=== PATIENT | male | born 1990 | race Caucasian/White ===

== ENCOUNTER 2017-08-03 18:38 | Emergency (ER) | payer SELFPAY ==
[2017-08-03] MEDS ORDERED: Benzocaine 20% Topical Spray UD MUCMEM ONE (18:54)
[2017-08-03] MEDS ORDERED: Lidocaine 2% Viscous Solution 15 ML Cup PO ONE (18:54)
--- NOTE | 2017-08-03 18:57 | EDM.PDOC ---
ED HPI GENERAL MEDICAL PROBLEM - General Chief Complaint: ENT Problem Stated Complaint: PT HAS INFECTION IN MOUTH Time Seen by Provider: 08/03/17 18:54 Source of Information: Reports: Patient History Limitations: Reports: No Limitations - History of Present Illness INITIAL COMMENTS - FREE TEXT/NARRATIVE: HISTORY AND PHYSICAL: []27-year-old male presenting with soreness to his mouth History of Present Illness: []This is an present for some time Review of Systems: As per history of present illness and below otherwise all systems reviewed and negative. Past medical history: As per history of present illness and as reviewed below otherwise noncontributory. Surgical history: As per history of present illness and as reviewed below otherwise noncontributory. Social history: No reported history of drug or alcohol abuse. Family history: As per history of present illness and as reviewed below otherwise noncontributory. Physical exam: Poor dentition is noted. Gums are swollen and erythematous. He is answering questions appropriately in full sentences without any shortness of breath HEENT: Atraumatic, normocehpalic, pupils reactive, negative for conjunctival pallor or scleral icterus, mucous membranes moist, throat clear, neck supple, nontender, trachea midline. Dental caries present and erythema to his gums Lungs: Clear to auscultation, breath sounds equal bilaterally, chest non tender. Heart: S1S2, regular, negative for clicks, rubs, or JVD. Extremities: Atraumatic, negative for cords or calf pain. Neurovascular unremarkable. Neuro: Awake, alert, oriented. Cranial nerves II through XII unremarkable. Cerebellum unremarkable. Motor and sensory unremarkable throughout. Exam nonfocal. Diagnostics: [] Therapeutics: [Dental balls] Impression: [Gingivitis] Plan: [Discharged to home Follow up with your dentist or dental hygienist] Definitive disposition and diagnosis as appropriate pending reevaluation and review of above. Onset: Gradual Duration: Day(s): - Related Data Allergies Allergy/AdvReac Type Severity Reaction Status Date / Time No Known Allergies Allergy Verified 08/03/17 18:51 Home Meds: Home Meds . [No Known Home Meds] 08/03/17 [History] ED ROS ENT - Review of Systems Review Of Systems: ROS reveals no pertinent complaints other than HPI. ED EXAM, ENT - Physical Exam Exam: See Below (see dictation) Departure - Departure Time of Disposition: 18:56 Disposition: Home, Self-Care 01 Condition: Good Clinical Impression: Gingivitis - Discharge Information Additional Instructions: The following information is given to patients seen in the emergency department who are being discharged to home. This information is to outline your options for follow-up care. We provide all patients seen in our emergency department with a follow-up referral. The need for follow-up, as well as the timing and circumstances, are variable depending upon the specifics of your emergency department visit. If you don't have a primary care physician on staff, we will provide you with a referral. We always advise you to contact your personal physician following an emergency department visit to inform them of the circumstance of the visit and for follow-up with them and/or the need for any referrals to a consulting specialist. The emergency department will also refer you to a specialist when appropriate. This referral assures that you have the opportunity for followup care with a specialist. All of these measure are taken in an effort to provide you with optimal care, which includes your followup. Under all circumstances we always encourage you to contact your private physician who remains a resource for coordinating your care. When calling for followup care, please make the office aware that this follow-up is from your recent emergency room visit. If for any reason you are refused follow-up, please contact the [facility] emergency department at and asked to speak to the emergency department charge nurse. Gingivitis Dental balls will help with the discomfort Follow-up with your dental hygienist her dentist
== END 2017-08-03 19:20 | disposition home or self-care (01) ==
LOC: MW.ED 18:38
DX: K05.10 Chronic gingivitis, plaque induced (principal)
CPT/HCPCS: 99283; A9270; 99281

== ENCOUNTER 2020-10-04 15:07 | Emergency (ER) | payer OTHER ==
[2020-10-04] MEDS ORDERED: Bacitracin Oint 1 GM U/D Packet TOP ONE (16:19)
[2020-10-04] MEDS ORDERED: Diphtheria,Pertussis(Acell),Tetanus Vaccine 0.5 ML Syringe IM ONE (16:31)
--- NOTE | 2020-10-04 16:40 | EDM.PDOC ---
ED HPI GENERAL MEDICAL PROBLEM - General Chief Complaint: Bite:Animal, Insect Stated Complaint: MEDICAL CLEARENCE Time Seen by Provider: 10/04/20 15:42 Source of Information: Reports: Patient, Family History Limitations: Reports: No Limitations - History of Present Illness INITIAL COMMENTS - FREE TEXT/NARRATIVE: Presents with law enforcement. This afternoon he was bitten in the hand by his girlfriend's dog. He lives with the dog. He states the dog got excited by some loud noise and in the course of containing the dog, he was bitten. He has no medical problems. Uncertain tetanus status. He will be going to the local [facility] who requested medical clearance. Patient states that he is uncertain of the dog's vaccination status. Right Hand Pain Score (Numeric/FACES): 8 - Related Data Allergies Allergy/AdvReac Type Severity Reaction Status Date / Time No Known Allergies Allergy Verified 10/04/20 15:16 Home Meds: Home Meds Amoxicillin/Potassium Clav [Augmentin 875-125 Tablet] 1 each PO BID #14 tablet 10/04/20 [Rx] Past Medical History - Past Health History Medical/Surgical History: Denies Medical/Surgical History Psychiatric History: Reports: Anxiety Social & Family History - Family History Family Medical History: No Pertinent Family History - Tobacco Use Tobacco Use Status *Q: Current Every Day Tobacco User Years of Tobacco use: 15 Packs/Tins Daily: 1 - Caffeine Use Caffeine Use: Reports: None - Recreational Drug Use Recreational Drug Use: Yes Recreational Drug Type: Reports: Marijuana/Hashish Recreational Drug Use Frequency: Daily ED ROS GENERAL - Review of Systems Review Of Systems: Comprehensive ROS is negative, except as noted in HPI. ED EXAM, ANIMAL BITE - Physical Exam Exam: See Below General Appearance: Alert, No Apparent Distress Ears: Normal External Exam Nose: Normal Inspection Throat/Mouth: Normal Inspection Head: Atraumatic, Normocephalic Neck: Normal Inspection Respiratory/Chest: No Respiratory Distress, Lungs Clear, Normal Breath Sounds Cardiovascular: Normal Peripheral Pulses, Regular Rate, Rhythm, No Edema GI/Abdominal: Normal Bowel Sounds, Soft Back Exam: Normal Inspection Extremities: Other (Right hand superficial lacerations to the third and fourth finger, left hand superficial laceration to the fourth finger. Full flex and extend without hesitation or limitation CMS intact distally bilateral.) Neurological: Alert, Oriented Psychiatric: Normal Affect, Normal Mood Skin Exam: Normal Color, Warm/Dry Course - Vital Signs Last Recorded V/S: Last Vital Signs Temp 36.2 C 10/04/20 15:16 Pulse 100 10/04/20 15:16 Resp 16 10/04/20 15:16 BP 125/83 10/04/20 15:16 Pulse Ox 96 10/04/20 15:16 - Orders/Labs/Meds Orders: Active Orders 24 hr Category Date Time Status Vaccines to be Administered [RC] PER UNIT ROUTINE Care 10/04/20 16:31 Ordered Meds: Medications Discontinued Medications Generic Name Dose Route Start Last Admin Trade Name [place] PRN Reason Stop Dose Admin Bacitracin 1 dose 10/04/20 16:19 10/04/20 16:27 Bacitracin Oint 1 Gm TOP 10/04/20 16:20 1 dose ONETIME ONE Administration Diphtheria/Tetanus/Acell Pertussis 0.5 ml 10/04/20 16:31 Boostrix IM 10/04/20 16:32 .ONCE ONE - Re-Assessments/Exams Free Text/Narrative Re-Assessment/Exam: 10/04/20 16:37 All wounds were soaked and scrubbed vigorously with chlorhexidine. Bacitracin and Band-Aid applied. Departure - Departure Time of Disposition: 16:40 Disposition: Home, Self-Care 01 Condition: Good Clinical Impression: Bite by animal - Discharge Information Referrals: PCP,None [Primary Care Provider] - [facility] [Outside] [facility] [Outside] Forms: ED Department Discharge Additional Instructions: The following information is given to patients seen in the emergency department who are being discharged to home. This information is to outline your options for follow-up care. We provide all patients seen in our emergency department with a follow-up referral. The need for follow-up, as well as the timing and circumstances, are variable depending upon the specifics of your emergency department visit. If you don't have a primary care physician on staff, we will provide you with a referral. We always advise you to contact your personal physician following an emergency department visit to inform them of the circumstance of the visit and for follow-up with them and/or the need for any referrals to a consulting specialist. The emergency department will also refer you to a specialist when appropriate. This referral assures that you have the opportunity for follow-up care with a specialist. All of these measure are taken in an effort to provide you with optimal care, which includes your follow-up. Under all circumstances we always encourage you to contact your private physician who remains a resource for coordinating your care. When calling for follow-up care, please make the office aware that this follow-up is from your recent emergency room visit. If for any reason you are refused follow-up, please contact the [facility] Emergency Department at and asked to speak to the emergency department charge nurse. 1. Take your twice daily 2. You were given a vaccine in the emergency room, tetanus, diphtheria, pertussis. Please xander that in your medical record 3. Watch for signs of infection: Redness, swelling, purulent drainage report promptly. 4. Keep wounds clean and dry Sepsis Event Note (ED) - Evaluation Sepsis Screening Result: No Definite Risk - Focused Exam Vital Signs: Vital Signs Temp Pulse Resp BP Pulse Ox 10/04/20 15:16 36.2 C 100 16 125/83 96 - My Orders Last 24 Hours: My Active Orders 10/04/20 16:31 Vaccines to be Administered [RC] PER UNIT ROUTINE - Assessment/Plan Last 24 Hours: My Active Orders 10/04/20 16:31 Vaccines to be Administered [RC] PER UNIT ROUTINE
== END 2020-10-04 16:51 ==
LOC: MW.ED 15:07
DX: S61.252A Open bite of right middle finger without damage to nail, initial encounter (principal); S61.254A Open bite of right ring finger without damage to nail, initial encounter; S61.255A Open bite of left ring finger without damage to nail, initial encounter; Z72.0 Tobacco use; Z23 Encounter for immunization; W54.0XXA Bitten by dog, initial encounter
CPT/HCPCS: 90471; 99283

== ENCOUNTER 2021-02-14 13:32 | Inpatient (IN) | payer SELFPAY ==
[2021-02-14] MEDS ORDERED: Ibuprofen 600 MG Tab PO ONE (13:48)
[2021-02-14] MEDS ORDERED: cefTRIAXone 2 GM in Premix Bag 1 BAG IV ONE (14:17)
[2021-02-14] MEDS ORDERED: Lactated Ringers 1,000 ML IV SCH (14:30)
[2021-02-14] MEDS ORDERED: Sodium Chloride 0.9% 1,000 ML IV ONE (14:47)
--- NOTE | 2021-02-14 15:00 | CR ---
Indication: Swelling and erythema of foot Technique: Three views left foot Comparison: None Findings: Bones: Alignment is normal. No fractures or bone lesions. Joint spaces: Unremarkable. Soft tissues: Mild swelling on the dorsum of the foot. No radiopaque foreign body. Impression: Mild swelling on the dorsum of the foot. No acute osseous abnormality. Dictated by Joanne Boateng MD @ 02/14/2021 2:58:[address] Joanne Boateng @ Feb 14 2021 2:58PM
[2021-02-14 15:34] LABS: BLOOD UREA NITROGEN,BUN 15 mg/dL (7.0-18.0); CARBON DIOXIDE,CO2 29.8 mmol/L (21.0-32.0); CHLORIDE,CL 99 mmol/L (98-107); GLUCOSE RANDOM 102 mg/dL (74-106); POTASSIUM,K 4.1 mmol/L (3.5-5.1); SODIUM,NA 137 mmol/L (136-148)
--- NOTE | 2021-02-14 16:25 | EDM.PDOC ---
ED HPI GENERAL MEDICAL PROBLEM - General Chief Complaint: Skin Complaint Stated Complaint: R FOOT INFECTION Time Seen by Provider: 02/14/21 13:33 - History of Present Illness INITIAL COMMENTS - FREE TEXT/NARRATIVE: CHIEF COMPLAINT(S): Right lower extremity infection HISTORY OF PRESENT ILLNESS: This is a 30-year-old man with a prior history of IV drug use who comes to the emergency department with a chief complaint of right l ower extremity infection. The patient states that approximately 7 days ago he was wearing some sandals when a blister appeared on the medial side of his right foot. He states that he cleaned this area however since that time there is some swelling and redness which is now extended up to his mid calf region. He states that his pain is rated as a 7 out of 10 and he is able to ambulate on the right lower extremity. He describes the pain as burning without any radiation. He denies any associated symptoms such as numbness, tingling, weakness. He states that he has tried ibuprofen at home without any relief of the pain. He states that given the infection he decided to come to the hospital. He denies any exacerbating factors. He denies any current IV drug use. He denies any chest pain, shortness of breath, abdominal pain, nausea or vomiting. He denies any blurry vision or loss of consciousness. REVIEW OF SYSTEMS: [Constitutional: Denies fever, chills. Eyes: Denies eye pain Ears, Nose, Mouth, & Throat: Denies earache Cardiovascular: Denies chest pain Respiratory: Denies shortness of breath Gastrointestinal: Denies Nausea, vomiting, diarrhea, hematochezia. Genitourinary: Denies hematuria Skin: Positive for right lower extremity redness, swelling MSK: Denies joint pain Neurological: Denies blurred vision Psychiatric: Denies depression] PAST MEDICAL HISTORY: As per history of present illness and as reviewed below otherwise noncontributory. SURGICAL HISTORY: As per history of present illness and as reviewed below otherwise noncontributory. SOCIAL HISTORY: As per history of present illness and as reviewed below otherwise noncontributory. FAMILY HISTORY: As per history of present illness and as reviewed below otherwise noncontributory. EXAMINATION OF ORGAN SYSTEMS/BODY AREAS: Constitutional: Blood pressure is 141/78, heart rate 119, respiratory rate 18 with an oxygen saturation of 99% on room air. Temperature 36.1 General: Overall well-appearing young man who is in no acute distress Psychiatric: [Appropriate mood and affect.] Eyes: [No scleral icterus or conjunctival erythema] ENMT: [Moist mucous membranes. No pharyngeal erythema] Cardiovascular: Tachycardic but regular. [No gallops, murmurs, or rubs.] Bilateral upper extremity pulses symmetric and intact. No peripheral edema. No JVD. Respiratory: [Lungs clear to auscultation bilaterally.][No wheezes, rales, or rhonchi.] Gastrointestinal: [Soft, non-tender, non-distended.] [Normoactive bowel sounds] Genitourinary: [No suprapubic tenderness] Musculoskeletal: There is a swelling of the right foot and ankle. The patient has full range of motion at the ankle without any significant pain. Skin: There is erythema on the medial aspect of the right foot which extends posteriorly up to the mid calf region. There is no crepitus noted. No Janeway lesions or Osler's nodes. There is a approximate 2 cm ulcer to the medial aspect of the right foot without any active purulent drainage. No fluctuance or induration could be appreciated. Neurological: [Alert, GCS 15] distal sensation is intact. MEDICAL DECISION MAKING AND COURSE IN THE ED WITH INTERPRETATION/REVIEW OF DIAGNOSTIC STUDIES: This is a 30-year-old man with a prior history of IV drug use who comes to the emergency department with right lower extremity cellulitis with an open ulcer who is mildly tachycardic. At this time I do suspect cellulitis. Will obtain a right lower extremity x-ray to evaluate for any obvious evidence of osteomyelitis. There is no bone exposed therefore I do believe this is low on the differential. We will provide the patient with 1 L of normal saline bolus as the patient's blood pressure is normal, provide the patient with 2 g of IV ceftriaxone and obtain CBC, BMP, lactic acid. Will obt ain blood cultures. We will also obtain ESR and CRP. We will provide the patient with ibuprofen for pain relief. 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 Laboratory: CBC reveals a leukocytosis of 13.57 otherwise unremarkable. BMP is unremarkable. Lactic acid is normal at 1.0. CRP is elevated at 5.9 and ESR is 29. The radiological images were viewed by myself along with reading the report from the radiologist. Right foot x-ray reveals mild swelling on the dorsum of the foot. No acute osseous abnormality. At this time the patient does meet sepsis criteria however the patient does not have any signs of end organ dysfunction with normal lactic acid. 30 cc/kg bolus will not be administered as the patient has normal blood pressure and normal lactate. Blood cultures were obtained prior to antibiotic administration. At this time I did have a discussion with the patient regarding admission. The patient was amenable to admission at this time. Therefore I contacted Dr. Devine who accepted the patient for admission. DISPOSITION: Patient was admitted to the hospital in stable condition CONDITION: Serious PROCEDURES: Cardiac monitoring interpretation, pulse oximetry interpretation FINAL IMPRESSION(S)/DIAGNOSES: 1. Acute sepsis secondary to right lower extremity cellulitis 2. Acute right lower extremity cellulitis Critical Care Procedure Note Authorized and performed by: Clemente Mcnulty M.D. Critical Care Time: 37 minutes Due to a high probability of clinically significant, life threatening deterioration, the patient required my highest level of preparedness to intervene emergently and I personally spent this critical care time directly and personally managing the patient. This critical care time included obtaining a history, examining the patient, pulse oximetry; ordering and review of studies; arranging urgent treatment with development of a management plan; evaluation of a patients reponse to treatment; frequent assessment; and discussions with other providers. This critical care time was performed to assess and manage the high probability of imminent, life threatening deterioration that could result in multiorgan failure. It was exclusive of separate billable procedures and treating other patients. Please see MDM section and rest of the note for further information on patient assessment and treatment. Please see MDM section and rest of the note for further information on patient assessment and treatment. Clemente Mcnulty M.D. right ankle Pain Score (Numeric/FACES): 7 - Related Data Allergies Allergy/AdvReac Type Severity Reaction Status Date / Time No Known Allergies Allergy Verified 02/14/21 14:00 Home Meds: Home Meds . [No Known Home Meds] 02/14/21 [History] Past Medical History - Past Health History Medical/Surgical History: Denies Medical/Surgical History Psychiatric History: Reports: Anxiety Social & Family History - Family History Family Medical History: No Pertinent Family History - Tobacco Use Packs/Tins Daily: 1 - Caffeine Use Caffeine Use: Reports: None - Recreational Drug Use Recreational Drug Use: Yes Recreational Drug Type: Reports: Marijuana/Hashish ED ROS GENERAL - Review of Systems Review Of Systems: See Below ED EXAM, SKIN/RASH Exam: See Below Course - Vital Signs Last Recorded V/S: Last Vital Signs Temp 36.1 C 02/14/21 13:56 Pulse 114 H 02/14/21 15:30 Resp BP 131/78 02/14/21 15:30 Pulse Ox 97 02/14/21 15:30 - Orders/Labs/Meds Orders: Active Orders 24 hr Category Date Time Status CORONAVIRUS COVID-19 RONEL [MOLEC] Stat Lab 02/14/21 16:19 Received CULTURE BLOOD [BC] Stat Lab 02/14/21 14:46 Received CULTURE BLOOD [BC] Stat Lab 02/14/21 15:01 Received Blood Culture x2 Reflex Set [OM.PC] Stat Oth 02/14/21 14:30 Ordered Medication Orders Sodium Chloride (Normal Saline) 1,000 mls @ 999 mls/hr IV ASDIRECTED [facility] Last Admin: 02/14/21 16:36 Dose: 999 mls/hr Documented by: KALINA Labs: Laboratory Tests 02/14/21 02/14/21 02/14/21 Range/Units 14:46 14:46 14:46 WBC 13.57 H (4.0-11.0) K/uL RBC 5.14 (4.50-5.90) M/uL Hgb 14.8 (13.0-17.0) g/dL Hct 43.5 (38.0-50.0) % MCV 84.6 (80.0-98.0) fL MCH 28.8 (27.0-32.0) pg MCHC 34.0 (31.0-37.0) g/dL RDW Std Deviation 38.3 (28.0-62.0) fl RDW Coeff of Kamron 13 (11.0-15.0) % Plt Count 305 (150-400) K/uL MPV 10.20 (7.40-12.00) fL Neut % (Auto) 73.6 (48.0-80.0) % Lymph % (Auto) 17.3 (16.0-40.0) % [place] % (Auto) 8.0 (0.0-15.0) % Eos % (Auto) 0.7 (0.0-7.0) % Baso % (Auto) 0.4 (0.0-1.5) % Neut # (Auto) 10.0 H (1.4-5.7) K/uL Lymph # (Auto) 2.4 (0.6-2.4) K/uL [place] # (Auto) 1.1 H (0.0-0.8) K/uL Eos # (Auto) 0.1 (0.0-0.7) K/uL Baso # (Auto) 0.1 (0.0-0.1) K/uL Nucleated RBC % 0.0 /100WBC Nucleated RBCs # 0 K/uL ESR 29 H (0-14) mm/hr Sodium 137 (136-148) mmol/L Potassium 4.1 (3.5-5.1) mmol/L Chloride 99 (98-107) mmol/L Carbon Dioxide 29.8 (21.0-32.0) mmol/L BUN 15 (7.0-18.0) mg/dL Creatinine 1.0 (0.8-1.3) mg/dL Est Cr Clr Drug Dosing 112.95 mL/min Estimated GFR (MDRD) > 60.0 ml/min Glucose 102 (74-106) mg/dL Lactic Acid (0.4-2.0) mmol/L Calcium 9.1 (8.5-10.1) mg/dL C-Reactive Protein 5.90 H (0.00-0.90) mg/dL 02/14/21 Range/Units 14:46 WBC (4.0-11.0) K/uL RBC (4.50-5.90) M/uL Hgb (13.0-17.0) g/dL Hct (38.0-50.0) % MCV (80.0-98.0) fL MCH (27.0-32.0) pg MCHC (31.0-37.0) g/dL RDW Std Deviation (28.0-62.0) fl RDW Coeff of Kamron (11.0-15.0) % Plt Count (150-400) K/uL MPV (7.40-12.00) fL Neut % (Auto) (48.0-80.0) % Lymph % (Auto) (16.0-40.0) % [place] % (Auto) (0.0-15.0) % Eos % (Auto) (0.0-7.0) % Baso % (Auto) (0.0-1.5) % Neut # (Auto) (1.4-5.7) K/uL Lymph # (Auto) (0.6-2.4) K/uL [place] # (Auto) (0.0-0.8) K/uL Eos # (Auto) (0.0-0.7) K/uL Baso # (Auto) (0.0-0.1) K/uL Nucleated RBC % /100WBC Nucleated RBCs # K/uL ESR (0-14) mm/hr Sodium (136-148) mmol/L Potassium (3.5-5.1) mmol/L Chloride (98-107) mmol/L Carbon Dioxide (21.0-32.0) mmol/L BUN (7.0-18.0) mg/dL Creatinine (0.8-1.3) mg/dL Est Cr Clr Drug Dosing mL/min Estimated GFR (MDRD) ml/min Glucose (74-106) mg/dL Lactic Acid 1.0 (0.4-2.0) mmol/L Calcium (8.5-10.1) mg/dL C-Reactive Protein (0.00-0.90) mg/dL Meds: Medications Generic Name Dose Route Start Last Admin Trade Name Freq PRN Reason Stop Dose Admin Sodium Chloride 1,000 mls @ 999 mls/hr 02/14/21 16:30 02/14/21 16:36 Normal Saline IV 999 mls/hr ASDIRECTED [facility]O Administration Discontinued Medications Generic Name Dose Route Start Last Admin Trade Name Freq PRN Reason Stop Dose Admin Ceftriaxone Sodium/Dextrose 2 50 mls @ 100 mls/hr 02/14/21 14:17 02/14/21 14:51 gm/ Premix IV 02/14/21 14:46 100 mls/hr ONETIME ONE Administration Sodium Chloride 1,000 mls @ 999 mls/hr 02/14/21 14:47 02/14/21 14:51 Normal Saline IV 02/14/21 15:47 999 mls/hr .Bolus ONE Administration Ibuprofen 600 mg 02/14/21 13:48 02/14/21 13:54 Ibuprofen 600 Mg Tab PO 02/14/21 13:49 600 mg ONETIME ONE Administration Departure - Departure Time of Disposition: 15:58 Disposition: Admitted As Inpatient 64 Condition: Fair Clinical Impression: Cellulitis - Discharge Information Sepsis Event Note (ED) - Evaluation Sepsis Screening Result: No Definite Risk - Focused Exam Vital Signs: Vital Signs Temp Pulse BP Pulse Ox 02/14/21 15:30 114 H 131/78 97 02/14/21 13:56 36.1 C 119 H 141/78 H 99 - My Orders Last 24 Hours: My Active Orders 02/14/21 14:30 Blood Culture x2 Reflex Set [OM.PC] Stat 02/14/21 14:46 CULTURE BLOOD [BC] Stat 02/14/21 15:01 CULTURE BLOOD [BC] Stat 02/14/21 16:19 CORONAVIRUS COVID-19 RONEL [MOLEC] Stat - Assessment/Plan Last 24 Hours: My Active Orders 02/14/21 14:30 Blood Culture x2 Reflex Set [OM.PC] Stat 02/14/21 14:46 CULTURE BLOOD [BC] Stat 02/14/21 15:01 CULTURE BLOOD [BC] Stat 02/14/21 16:19 CORONAVIRUS COVID-19 RONEL [MOLEC] Stat
[2021-02-14] MEDS ORDERED: Sodium Chloride 0.9% 1,000 ML IV SCH ×2 (16:30→19:00)
--- NOTE | 2021-02-14 22:41 | PCM.HP.2 ---
H&P History of Present Illness - General Date of Service: 02/14/21 Admit Problem/Dx: Admission Diagnosis/Problem Admission Diagnosis/Problem Cellulitis - History of Present Illness Initial Comments - Free Text/Narative: 30 yo male who presents with one week history of rash and edema of right foot. PAtient reports a week ago developing a blister on the dorsum of his right foot from a wearing sandals. Patient reports sweeling of the dorsum of his foot that extends to the lower leg with mild redness. He did report having fevers when the rash first started. right ankle Pain Score (Numeric/FACES): 7 - Related Data Allergies/Adverse Reactions: Allergies Allergy/AdvReac Type Severity Reaction Status Date / Time No Known Allergies Allergy Verified 02/14/21 18:25 Home Medications: Home Meds . 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 Psychiatric History: Reports: Anxiety - Infectious Disease History Infectious Disease History: Reports: Chicken Pox - Past Surgical History Respiratory Surgical History: Reports: None Musculoskeletal Surgical History: Reports: Other (See Below) Other Musculoskeletal Surgeries/Procedures:: repair tendons to left arm Social & Family History - Family History Family Medical History: No Pertinent Family History Musculoskeletal: Reports: Arthritis Neurological: Reports: CVA Endocrine/Metabolic: Reports: Diabetes, type II - Tobacco Use Tobacco Use Status *Q: Current Every Day Tobacco User Years of Tobacco use: 18 Packs/Tins Daily: 1 Second Hand Smoke Exposure: Yes - Caffeine Use Caffeine Use: Reports: None - Recreational Drug Use Recreational Drug Use: Yes Drug Use in Last 12 Months: Yes Recreational Drug Type: Reports: Marijuana/Hashish Recreational Drug Use Frequency: Weekly H&P Review of Systems - Review of Systems: Review Of Systems: Comprehensive ROS is negative, except as noted in HPI. Exam - Exam Exam: See Below - Vital Signs Vital Signs: Last Vital Signs Temp 36.6 C 02/14/21 20:51 Pulse 97 02/14/21 20:51 Resp 15 02/14/21 20:51 BP 123/72 02/14/21 20:51 Pulse Ox 99 02/14/21 20:51 Weight: 74.797 kg - Exam General: Alert, Oriented HEENT: Mucosa Moist & [place] Neck: Supple Lungs: Clear to Auscultation, Normal Respiratory Effort Cardiovascular: Regular Rate, Regular Rhythm GI/Abdominal Exam: Normal Bowel Sounds, Soft, Non-Tender Extremities: Other (edema of right dorsum of foot extending to 1/4 of lower leg, no ankle effusion noted, healing 2-3cm ulcer on dorsum of foot, no drainage noted. full flextion and extension of right ankle) Neurological: Cranial Nerves Intact. No: Focal Deficit - Patient Data Lab Results Last 24 hrs: Laboratory Results - last 24 hr 02/14/21 02/14/21 02/14/21 Range/Units 14:46 14:46 14:46 WBC 13.57 H (4.0-11.0) K/uL RBC 5.14 (4.50-5.90) M/uL Hgb 14.8 (13.0-17.0) g/dL Hct 43.5 (38.0-50.0) % MCV 84.6 (80.0-98.0) fL MCH 28.8 (27.0-32.0) pg MCHC 34.0 (31.0-37.0) g/dL RDW Std Deviation 38.3 (28.0-62.0) fl RDW Coeff of Kamron 13 (11.0-15.0) % Plt Count 305 (150-400) K/uL MPV 10.20 (7.40-12.00) fL Neut % (Auto) 73.6 (48.0-80.0) % Lymph % (Auto) 17.3 (16.0-40.0) % [place] % (Auto) 8.0 (0.0-15.0) % Eos % (Auto) 0.7 (0.0-7.0) % Baso % (Auto) 0.4 (0.0-1.5) % Neut # (Auto) 10.0 H (1.4-5.7) K/uL Lymph # (Auto) 2.4 (0.6-2.4) K/uL [place] # (Auto) 1.1 H (0.0-0.8) K/uL Eos # (Auto) 0.1 (0.0-0.7) K/uL Baso # (Auto) 0.1 (0.0-0.1) K/uL Nucleated RBC % 0.0 /100WBC Nucleated RBCs # 0 K/uL ESR 29 H (0-14) mm/hr Sodium 137 (136-148) mmol/L Potassium 4.1 (3.5-5.1) mmol/L Chloride 99 (98-107) mmol/L Carbon Dioxide 29.8 (21.0-32.0) mmol/L BUN 15 (7.0-18.0) mg/dL Creatinine 1.0 (0.8-1.3) mg/dL Est Cr Clr Drug Dosing 112.95 mL/min Estimated GFR (MDRD) > 60.0 ml/min Glucose 102 (74-106) mg/dL Lactic Acid (0.4-2.0) mmol/L Calcium 9.1 (8.5-10.1) mg/dL C-Reactive Protein 5.90 H (0.00-0.90) mg/dL SARS-CoV-2 RNA (RONEL) (NEGATIVE) 02/14/21 02/14/21 Range/Units 14:46 16:19 WBC (4.0-11.0) K/uL RBC (4.50-5.90) M/uL Hgb (13.0-17.0) g/dL Hct (38.0-50.0) % MCV (80.0-98.0) fL MCH (27.0-32.0) pg MCHC (31.0-37.0) g/dL RDW Std Deviation (28.0-62.0) fl RDW Coeff of Kamron (11.0-15.0) % Plt Count (150-400) K/uL MPV (7.40-12.00) fL Neut % (Auto) (48.0-80.0) % Lymph % (Auto) (16.0-40.0) % [place] % (Auto) (0.0-15.0) % Eos % (Auto) (0.0-7.0) % Baso % (Auto) (0.0-1.5) % Neut # (Auto) (1.4-5.7) K/uL Lymph # (Auto) (0.6-2.4) K/uL [place] # (Auto) (0.0-0.8) K/uL Eos # (Auto) (0.0-0.7) K/uL Baso # (Auto) (0.0-0.1) K/uL Nucleated RBC % /100WBC Nucleated RBCs # K/uL ESR (0-14) mm/hr Sodium (136-148) mmol/L Potassium (3.5-5.1) mmol/L Chloride (98-107) mmol/L Carbon Dioxide (21.0-32.0) mmol/L BUN (7.0-18.0) mg/dL Creatinine (0.8-1.3) mg/dL Est Cr Clr Drug Dosing mL/min Estimated GFR (MDRD) ml/min Glucose (74-106) mg/dL Lactic Acid 1.0 (0.4-2.0) mmol/L Calcium (8.5-10.1) mg/dL C-Reactive Protein (0.00-0.90) mg/dL SARS-CoV-2 RNA (RONEL) NEGATIVE (NEGATIVE) Result Diagrams: 02/15/21 05:00 02/15/21 05:00 Sepsis Event Note - Evaluation Sepsis Screening Result: Sepsis Risk - Focused Exam Vital Signs: Vital Signs Temp Pulse Resp BP Pulse Ox 02/14/21 20:51 36.6 C 97 15 123/72 99 02/14/21 17:43 111 H 14 126/68 98 02/14/21 15:30 114 H 131/78 97 02/14/21 13:56 36.1 C 119 H 141/78 H 99 - Problem List (1) Cellulitis and abscess of foot SNOMED Code(s): 115551926, 414649024 ICD Code: L03.119 - CELLULITIS OF UNSPECIFIED PART OF LIMB; L02.619 - CUTANEOUS ABSCESS OF UNSPECIFIED FOOT Status: Acute Current Visit: Yes (2) Sepsis SNOMED Code(s): 31044372 ICD Code: A41.9 - SEPSIS, UNSPECIFIED ORGANISM Status: Acute Current Visit: Yes Qualifiers: Sepsis acute organ dysfunction status: without acute organ dysfunction Problem List Initiated/Reviewed/Updated: Yes Orders Last 24hrs: Active Orders 24 hr Category Date Time Status Admission Status [Patient Status] [ADT] Stat ADT 02/14/21 15:58 Active Telemetry Monitoring [Cardiac Monitoring] [RC] Q8H Care 02/14/21 17:42 Active Regular Diet [DIET] Diet 02/14/21 Dinner Active CULTURE BLOOD [BC] Stat Lab 02/14/21 14:46 Received CULTURE BLOOD [BC] Stat Lab 02/14/21 15:01 Received VANCOMYCIN TROUGH [CHEM] Timed Lab 02/16/21 03:30 Ordered Pharmacy to Dose - Vancomycin Med 02/14/21 19:00 Pending 1 dose .XX ASDIRECTED Sodium Chloride 0.9% [Normal Saline] 1,000 ml Med 02/14/21 19:00 Active IV ASDIRECTED Vancomycin [Vancocin] 1 gm Med 02/14/21 20:00 Active Sodium Chloride 0.9% [Normal Saline (AdvBag)] 250 ml IV Q8H Blood Culture x2 Reflex Set [OM.PC] Stat Oth 02/14/21 14:30 Ordered Medication Orders Sodium Chloride (Normal Saline) 1,000 mls @ 125 mls/hr IV ASDIRECTED [facility] Stop: 02/15/21 02:59 Last Admin: 02/14/21 20:48 Dose: 125 mls/hr Documented by: ANUJ Vancomycin HCl 1 gm/ Sodium (Chloride) 250 mls @ 166 mls/hr IV Q8H [facility] Last Admin: 02/14/21 20:49 Dose: 166 mls/hr Documented by: ANUJ Vancomycin HCl (Pharmacy To Dose - Vancomycin) 1 dose .XX ASDIRECTED [facility] Assessment/Plan Comment:: 30 yo male admitted for right foot cellulitis. Will treat with VAncomycin. Blood cultures pending
[2021-02-14] MEDS ORDERED: Enoxaparin 40 MG/0.4 ML Syringe SUBCUT SCH (23:15)
[2021-02-15 06:52] LABS: BLOOD UREA NITROGEN,BUN 11 mg/dL (7.0-18.0); CARBON DIOXIDE,CO2 26.3 mmol/L (21.0-32.0); CHLORIDE,CL 105 mmol/L (98-107); GLUCOSE RANDOM 94 mg/dL (74-106); POTASSIUM,K 3.9 mmol/L (3.5-5.1); SODIUM,NA 140 mmol/L (136-148)
--- NOTE | 2021-02-15 12:11 | PCM.PN ---
- General Info Date of Service: 02/15/21 - Review of Systems Systems Review Comment:: erythema and swelling of ankle improving - Patient Data Vitals - Most Recent: Last Vital Signs Temp 36.6 C 02/15/21 12:06 Pulse 89 02/15/21 12:06 Resp 16 02/15/21 12:06 BP 120/80 02/15/21 12:06 Pulse Ox 99 02/15/21 12:06 Weight - Most Recent: 74.797 kg I&O - Last 24 Hours: Intake & Output 02/14/21 02/15/21 02/15/21 22:59 06:59 14:59 Intake Total 250 1337 Output Total 550 Balance 250 787 Lab Results Last 24 Hours: Laboratory Results - last 24 hr 02/14/21 02/14/21 02/14/21 Range/Units 14:46 14:46 14:46 WBC 13.57 H (4.0-11.0) K/uL RBC 5.14 (4.50-5.90) M/uL Hgb 14.8 (13.0-17.0) g/dL Hct 43.5 (38.0-50.0) % MCV 84.6 (80.0-98.0) fL MCH 28.8 (27.0-32.0) pg MCHC 34.0 (31.0-37.0) g/dL RDW Std Deviation 38.3 (28.0-62.0) fl RDW Coeff of Kamron 13 (11.0-15.0) % Plt Count 305 (150-400) K/uL MPV 10.20 (7.40-12.00) fL Neut % (Auto) 73.6 (48.0-80.0) % Lymph % (Auto) 17.3 (16.0-40.0) % [place] % (Auto) 8.0 (0.0-15.0) % Eos % (Auto) 0.7 (0.0-7.0) % Baso % (Auto) 0.4 (0.0-1.5) % Neut # (Auto) 10.0 H (1.4-5.7) K/uL Lymph # (Auto) 2.4 (0.6-2.4) K/uL [place] # (Auto) 1.1 H (0.0-0.8) K/uL Eos # (Auto) 0.1 (0.0-0.7) K/uL Baso # (Auto) 0.1 (0.0-0.1) K/uL Nucleated RBC % 0.0 /100WBC Nucleated RBCs # 0 K/uL ESR 29 H (0-14) mm/hr Sodium 137 (136-148) mmol/L Potassium 4.1 (3.5-5.1) mmol/L Chloride 99 (98-107) mmol/L Carbon Dioxide 29.8 (21.0-32.0) mmol/L BUN 15 (7.0-18.0) mg/dL Creatinine 1.0 (0.8-1.3) mg/dL Est Cr Clr Drug Dosing 112.95 mL/min Estimated GFR (MDRD) > 60.0 ml/min Glucose 102 (74-106) mg/dL Lactic Acid (0.4-2.0) mmol/L Calcium 9.1 (8.5-10.1) mg/dL C-Reactive Protein 5.90 H (0.00-0.90) mg/dL SARS-CoV-2 RNA (RONEL) (NEGATIVE) 02/14/21 02/14/21 02/15/21 Range/Units 14:46 16:19 05:00 WBC 9.96 (4.0-11.0) K/uL RBC 4.59 (4.50-5.90) M/uL Hgb 13.5 (13.0-17.0) g/dL Hct 39.0 (38.0-50.0) % MCV 85.0 (80.0-98.0) fL MCH 29.4 (27.0-32.0) pg MCHC 34.6 (31.0-37.0) g/dL RDW Std Deviation 38.5 (28.0-62.0) fl RDW Coeff of Kamron 13 (11.0-15.0) % Plt Count 285 (150-400) K/uL MPV 10.50 (7.40-12.00) fL Neut % (Auto) 61.7 (48.0-80.0) % Lymph % (Auto) 25.7 (16.0-40.0) % [place] % (Auto) 11.0 (0.0-15.0) % Eos % (Auto) 1.2 (0.0-7.0) % Baso % (Auto) 0.4 (0.0-1.5) % Neut # (Auto) 6.1 H (1.4-5.7) K/uL Lymph # (Auto) 2.6 H (0.6-2.4) K/uL [place] # (Auto) 1.1 H (0.0-0.8) K/uL Eos # (Auto) 0.1 (0.0-0.7) K/uL Baso # (Auto) 0.0 (0.0-0.1) K/uL Nucleated RBC % 0.0 /100WBC Nucleated RBCs # 0 K/uL ESR (0-14) mm/hr Sodium (136-148) mmol/L Potassium (3.5-5.1) mmol/L Chloride (98-107) mmol/L Carbon Dioxide (21.0-32.0) mmol/L BUN (7.0-18.0) mg/dL Creatinine (0.8-1.3) mg/dL Est Cr Clr Drug Dosing mL/min Estimated GFR (MDRD) ml/min Glucose (74-106) mg/dL Lactic Acid 1.0 (0.4-2.0) mmol/L Calcium (8.5-10.1) mg/dL C-Reactive Protein (0.00-0.90) mg/dL SARS-CoV-2 RNA (RONEL) NEGATIVE (NEGATIVE) 02/15/21 Range/Units 05:00 WBC (4.0-11.0) K/uL RBC (4.50-5.90) M/uL Hgb (13.0-17.0) g/dL Hct (38.0-50.0) % MCV (80.0-98.0) fL MCH (27.0-32.0) pg MCHC (31.0-37.0) g/dL RDW Std Deviation (28.0-62.0) fl RDW Coeff of Kamron (11.0-15.0) % Plt Count (150-400) K/uL MPV (7.40-12.00) fL Neut % (Auto) (48.0-80.0) % Lymph % (Auto) (16.0-40.0) % [place] % (Auto) (0.0-15.0) % Eos % (Auto) (0.0-7.0) % Baso % (Auto) (0.0-1.5) % Neut # (Auto) (1.4-5.7) K/uL Lymph # (Auto) (0.6-2.4) K/uL [place] # (Auto) (0.0-0.8) K/uL Eos # (Auto) (0.0-0.7) K/uL Baso # (Auto) (0.0-0.1) K/uL Nucleated RBC % /100WBC Nucleated RBCs # K/uL ESR (0-14) mm/hr Sodium 140 (136-148) mmol/L Potassium 3.9 (3.5-5.1) mmol/L Chloride 105 (98-107) mmol/L Carbon Dioxide 26.3 (21.0-32.0) mmol/L BUN 11 (7.0-18.0) mg/dL Creatinine 0.8 (0.8-1.3) mg/dL Est Cr Clr Drug Dosing 140.25 mL/min Estimated GFR (MDRD) > 60.0 ml/min Glucose 94 (74-106) mg/dL Lactic Acid (0.4-2.0) mmol/L Calcium 8.5 (8.5-10.1) mg/dL C-Reactive Protein (0.00-0.90) mg/dL SARS-CoV-2 RNA (RONEL) (NEGATIVE) Med Orders - Current: Current Medications Enoxaparin Sodium (Enoxaparin 40 Mg/0.4 Ml Syringe) 40 mg SUBCUT Q24H [facility] Last Admin: 02/15/21 00:18 Dose: 40 mg Documented by: Vancomycin HCl 1 gm/ Sodium (Chloride) 250 mls @ 166 mls/hr IV Q8H [facility] Last Admin: 02/14/21 20:49 Dose: 166 mls/hr Documented by: Vancomycin HCl (Pharmacy To Dose - Vancomycin) 1 dose .XX ASDIRECTED [facility] Discontinued Medications Ceftriaxone Sodium/Dextrose 2 (gm/ Premix) 50 mls @ 100 mls/hr IV ONETIME ONE Stop: 02/14/21 14:46 Last Admin: 02/14/21 14:51 Dose: 100 mls/hr Documented by: Sodium Chloride (Normal Saline) 1,000 mls @ 999 mls/hr IV .Bolus ONE Stop: 02/14/21 15:47 Last Admin: 02/14/21 14:51 Dose: 999 mls/hr Documented by: Sodium Chloride (Normal Saline) 1,000 mls @ 999 mls/hr IV ASDIRECTED [facility] Last Admin: 02/14/21 16:36 Dose: 999 mls/hr Documented by: Sodium Chloride (Normal Saline) 1,000 mls @ 125 mls/hr IV ASDIRECTED [facility] Stop: 02/15/21 02:59 Last Admin: 02/14/21 20:48 Dose: 125 mls/hr Documented by: Ibuprofen (Ibuprofen 600 Mg Tab) 600 mg PO ONETIME ONE Stop: 02/14/21 13:49 Last Admin: 02/14/21 13:54 Dose: 600 mg Documented by: - Exam General: Alert, Oriented Neck: Supple Lungs: Clear to Auscultation, Normal Respiratory Effort Cardiovascular: Regular Rate, Regular Rhythm GI/Abdominal Exam: Normal Bowel Sounds, Soft, Non-Tender Extremities: Other (erythema and edema of right foot and leg improving, no drainage note from healing ulcer) Neurological: No New Focal Deficit - Patient Data Lab Results Last 24 hrs: Laboratory Results - last 24 hr 02/14/21 02/14/21 02/14/21 Range/Units 14:46 14:46 14:46 WBC 13.57 H (4.0-11.0) K/uL RBC 5.14 (4.50-5.90) M/uL Hgb 14.8 (13.0-17.0) g/dL Hct 43.5 (38.0-50.0) % MCV 84.6 (80.0-98.0) fL MCH 28.8 (27.0-32.0) pg MCHC 34.0 (31.0-37.0) g/dL RDW Std Deviation 38.3 (28.0-62.0) fl RDW Coeff of Kamron 13 (11.0-15.0) % Plt Count 305 (150-400) K/uL MPV 10.20 (7.40-12.00) fL Neut % (Auto) 73.6 (48.0-80.0) % Lymph % (Auto) 17.3 (16.0-40.0) % [place] % (Auto) 8.0 (0.0-15.0) % Eos % (Auto) 0.7 (0.0-7.0) % Baso % (Auto) 0.4 (0.0-1.5) % Neut # (Auto) 10.0 H (1.4-5.7) K/uL Lymph # (Auto) 2.4 (0.6-2.4) K/uL [place] # (Auto) 1.1 H (0.0-0.8) K/uL Eos # (Auto) 0.1 (0.0-0.7) K/uL Baso # (Auto) 0.1 (0.0-0.1) K/uL Nucleated RBC % 0.0 /100WBC Nucleated RBCs # 0 K/uL ESR 29 H (0-14) mm/hr Sodium 137 (136-148) mmol/L Potassium 4.1 (3.5-5.1) mmol/L Chloride 99 (98-107) mmol/L Carbon Dioxide 29.8 (21.0-32.0) mmol/L BUN 15 (7.0-18.0) mg/dL Creatinine 1.0 (0.8-1.3) mg/dL Est Cr Clr Drug Dosing 112.95 mL/min Estimated GFR (MDRD) > 60.0 ml/min Glucose 102 (74-106) mg/dL Lactic Acid (0.4-2.0) mmol/L Calcium 9.1 (8.5-10.1) mg/dL C-Reactive Protein 5.90 H (0.00-0.90) mg/dL SARS-CoV-2 RNA (RONEL) (NEGATIVE) 02/14/21 02/14/21 02/15/21 Range/Units 14:46 16:19 05:00 WBC 9.96 (4.0-11.0) K/uL RBC 4.59 (4.50-5.90) M/uL Hgb 13.5 (13.0-17.0) g/dL Hct 39.0 (38.0-50.0) % MCV 85.0 (80.0-98.0) fL MCH 29.4 (27.0-32.0) pg MCHC 34.6 (31.0-37.0) g/dL RDW Std Deviation 38.5 (28.0-62.0) fl RDW Coeff of Kamron 13 (11.0-15.0) % Plt Count 285 (150-400) K/uL MPV 10.50 (7.40-12.00) fL Neut % (Auto) 61.7 (48.0-80.0) % Lymph % (Auto) 25.7 (16.0-40.0) % [place] % (Auto) 11.0 (0.0-15.0) % Eos % (Auto) 1.2 (0.0-7.0) % Baso % (Auto) 0.4 (0.0-1.5) % Neut # (Auto) 6.1 H (1.4-5.7) K/uL Lymph # (Auto) 2.6 H (0.6-2.4) K/uL [place] # (Auto) 1.1 H (0.0-0.8) K/uL Eos # (Auto) 0.1 (0.0-0.7) K/uL Baso # (Auto) 0.0 (0.0-0.1) K/uL Nucleated RBC % 0.0 /100WBC Nucleated RBCs # 0 K/uL ESR (0-14) mm/hr Sodium (136-148) mmol/L Potassium (3.5-5.1) mmol/L Chloride (98-107) mmol/L Carbon Dioxide (21.0-32.0) mmol/L BUN (7.0-18.0) mg/dL Creatinine (0.8-1.3) mg/dL Est Cr Clr Drug Dosing mL/min Estimated GFR (MDRD) ml/min Glucose (74-106) mg/dL Lactic Acid 1.0 (0.4-2.0) mmol/L Calcium (8.5-10.1) mg/dL C-Reactive Protein (0.00-0.90) mg/dL SARS-CoV-2 RNA (RONEL) NEGATIVE (NEGATIVE) 02/15/21 Range/Units 05:00 WBC (4.0-11.0) K/uL RBC (4.50-5.90) M/uL Hgb (13.0-17.0) g/dL Hct (38.0-50.0) % MCV (80.0-98.0) fL MCH (27.0-32.0) pg MCHC (31.0-37.0) g/dL RDW Std Deviation (28.0-62.0) fl RDW Coeff of Kamron (11.0-15.0) % Plt Count (150-400) K/uL MPV (7.40-12.00) fL Neut % (Auto) (48.0-80.0) % Lymph % (Auto) (16.0-40.0) % [place] % (Auto) (0.0-15.0) % Eos % (Auto) (0.0-7.0) % Baso % (Auto) (0.0-1.5) % Neut # (Auto) (1.4-5.7) K/uL Lymph # (Auto) (0.6-2.4) K/uL [place] # (Auto) (0.0-0.8) K/uL Eos # (Auto) (0.0-0.7) K/uL Baso # (Auto) (0.0-0.1) K/uL Nucleated RBC % /100WBC Nucleated RBCs # K/uL ESR (0-14) mm/hr Sodium 140 (136-148) mmol/L Potassium 3.9 (3.5-5.1) mmol/L Chloride 105 (98-107) mmol/L Carbon Dioxide 26.3 (21.0-32.0) mmol/L BUN 11 (7.0-18.0) mg/dL Creatinine 0.8 (0.8-1.3) mg/dL Est Cr Clr Drug Dosing 140.25 mL/min Estimated GFR (MDRD) > 60.0 ml/min Glucose 94 (74-106) mg/dL Lactic Acid (0.4-2.0) mmol/L Calcium 8.5 (8.5-10.1) mg/dL C-Reactive Protein (0.00-0.90) mg/dL SARS-CoV-2 RNA (RONEL) (NEGATIVE) Result Diagrams: 02/15/21 05:00 02/15/21 05:00 Sepsis Event Note - Evaluation Sepsis Screening Result: No Definite Risk - Focused Exam Vital Signs: Vital Signs Temp Pulse Resp BP Pulse Ox 02/15/21 12:06 36.6 C 89 16 120/80 99 02/15/21 08:21 37.1 C 80 13 111/75 95 02/15/21 04:00 36.2 C 89 14 114/61 96 - Problem List & Annotations (1) Cellulitis and abscess of foot SNOMED Code(s): 113811335, 249625618 Code(s): L03.119 - CELLULITIS OF UNSPECIFIED PART OF LIMB; L02.619 - CUTANEO US ABSCESS OF UNSPECIFIED FOOT Status: Acute Current Visit: Yes (2) Sepsis SNOMED Code(s): 28007878 Code(s): A41.9 - SEPSIS, UNSPECIFIED ORGANISM Status: Acute Current Visit: Yes Qualifiers: Sepsis acute organ dysfunction status: without acute organ dysfunction - Problem List Review Problem List Initiated/Reviewed/Updated: Yes - My Orders Last 24 Hours: My Active Orders 02/14/21 Dinner Regular Diet [DIET] 02/14/21 17:42 Telemetry Monitoring [Cardiac Monitoring] [RC] Q8H 02/14/21 19:00 Pharmacy to Dose - Vancomycin 1 dose .XX ASDIRECTED 02/14/21 20:00 Vancomycin [Vancocin] 1 gm Sodium Chloride 0.9% [Normal Saline (AdvBag)] 250 ml IV Q8H 02/14/21 23:15 Oxygen Therapy [RC] PRN Up ad Marzena [RC] ASDIRECTED VTE/DVT Education [RC] PER UNIT ROUTINE Vital Signs [RC] Q4H Enoxaparin [Lovenox] 40 mg SUBCUT Q24H Sequential Compression Device [OM.PC] Per Unit Routine Resuscitation Status Routine 02/14/21 23:16 Antiembolic Devices [RC] PER UNIT ROUTINE 02/16/21 05:11 BASIC METABOLIC PANEL,BMP [CHEM] AM CBC WITH AUTO DIFF [HEME] AM - Plan Plan:: 30 yo male admitted for right foot cellulitis. We will continue Vancomycin. Blood cultures pending.
== END 2021-02-15 15:40 | disposition left against medical advice (07) | DRG 872 ==
LOC: MW.ED 13:32 → MW.MS 15:58
PROVIDERS: ADMIT Internal Medicine; ATTEND Internal Medicine
DX: A41.9 Sepsis, unspecified organism (principal); L03.115 Cellulitis of right lower limb; F41.9 Anxiety disorder, unspecified; F17.210 Nicotine dependence, cigarettes, uncomplicated; Z20.822 Contact with and (suspected) exposure to COVID-19
CPT/HCPCS: 36415; 73630-26-RT; 73630-RT; 80048; 83605; 85025; 85652; 86140; 87040; 99284; 99291; A9270-GY; J0696; J1650; J3370; J7030; J7050; U0002

== ENCOUNTER 2022-01-08 21:54 | Emergency (ER) | payer MEDICAID | END 2022-01-08 22:52 | disposition home or self-care (01) | LOC: MW.ED 21:54 | DX: S97.81XA Crushing injury of right foot, initial encounter (principal); W23.1XXA Caught, crushed, jammed, or pinched between stationary objects, initial encounter | CPT/HCPCS: 73630-26-RT; 73630-RT; 99282; 99283-25 ==

== ENCOUNTER 2022-07-08 21:49 | Emergency (ER) | payer MEDICAID ==
[2022-07-08] MEDS ORDERED: Acetaminophen/HYDROcodone 325-5 MG Tab PO ONE (22:06)
[2022-07-08] MEDS ORDERED: Ibuprofen 600 MG Tab PO ONE (22:06)
[2022-07-08] MEDS ORDERED: ceFAZolin 2 GM in Premix Bag 1 BAG IV ONE (23:07)
[2022-07-08] MEDS ORDERED: fentaNYL 100 MCG/2 ML SDV IVPUSH PRN (23:10)
[2022-07-08] MEDS ORDERED: Lidocaine 1% 5 ML VIAL INJECT ONE (23:10)
[2022-07-08] MEDS ORDERED: Ondansetron 4 MG/2 ML SDV IVPUSH ONE (23:10)
[2022-07-09] MEDS ORDERED: Octyl 2-Cyanoacrylate 1 g/1 mL 1 APPLIC PEN TOP ONE (00:57)
== END 2022-07-09 01:39 | disposition home or self-care (01) ==
LOC: MW.ED 21:49
DX: S52.252B Displaced comminuted fracture of shaft of ulna, left arm, initial encounter for open fracture type I or II (principal); S01.81XA Laceration without foreign body of other part of head, initial encounter
CPT/HCPCS: 12001; 12015; 29105; 70450; 72125; 73090; 96365; 96375; 99284; A9270; J0690; J2405; J3010

== ENCOUNTER 2022-07-09 15:21 | Day surgery (SDC) | payer MEDICAID ==
[~2022-07-09 15:21] MED LIST: Lactated Ringers 1,000 ML IV SCH; ceFAZolin 2 GM in Premix Bag 1 BAG IV SCH
[2022-07-09] MEDS ORDERED: Bupivacaine 0.5% 30 ML SDV ONE (15:35)
[2022-07-09] MEDS ORDERED: Bupivacaine 0.25%/EPINEPHrine 1:200,000 10 ML SDV ONE (15:35)
[2022-07-09] MEDS ORDERED: fentaNYL 100 MCG/2 ML SDV ONE (15:38)
[2022-07-09] MEDS ORDERED: Propofol 200 MG/20 ML SDV ONE (15:38)
[2022-07-09] MEDS ORDERED: Lidocaine 2% 5 ML SDV ONE (15:41)
[2022-07-09] MEDS ORDERED: Lidocaine 1% 5 ML VIAL ONE (15:41)
[2022-07-09] MEDS ORDERED: ceFAZolin 1 GM Vial ONE (16:24)
[2022-07-09] MEDS ORDERED: Ondansetron 4 MG/2 ML SDV ONE (16:59)
[2022-07-09] MEDS ORDERED: Dexamethasone 4 MG/ML 5 ML MDV ONE (16:59)
[2022-07-09] MEDS ORDERED: Ketorolac 30 MG/ML SDV ONE (16:59)
[2022-07-09] MEDS ORDERED: Phenylephrine HCl In 0.9% NaCl 1 MG/10 ML Vial ONE (17:33)
[2022-07-09] MEDS ORDERED: fentaNYL 50 MCG/ML SDV IVPUSH PRN (18:17)
[2022-07-09] MEDS ORDERED: Ondansetron 4 MG/2 ML SDV IVPUSH PRN (18:17)
[2022-07-09] MEDS ORDERED: Albuterol 0.083% 2.5 MG/3 ML Neb Soln NEB PRN (18:17)
[2022-07-09] MEDS ORDERED: Naloxone 0.4 MG/ML SDV IVPUSH PRN (18:17)
[2022-07-09] MEDS ORDERED: Morphine 2 MG/ML SYRINGE IVPUSH PRN (18:17)
[2022-07-09] MEDS ORDERED: HYDROmorphone 1 MG/ML Syringe IVPUSH PRN (18:17)
[2022-07-09] MEDS ORDERED: Metoclopramide 10 MG/2 ML SDV IVPUSH PRN (18:17)
== END 2022-07-09 22:30 | disposition home or self-care (01) ==
LOC: MW.SDS 15:21 → MW.MS 15:21 → MW.SDS 22:30
PROVIDERS: ATTEND Orthopaedic Surgery
DX: S52.202B Unspecified fracture of shaft of left ulna, initial encounter for open fracture type I or II (principal); J45.909 Unspecified asthma, uncomplicated; F41.9 Anxiety disorder, unspecified; F17.210 Nicotine dependence, cigarettes, uncomplicated; Z79.899 Other long term (current) drug therapy
CPT/HCPCS: 25545; 76000; C1713; J0690; J1100; J1885; J2704; J3010; J3490; J7030; J7120; 01740; 76942; J2405

== ENCOUNTER 2022-07-16 21:52 | Emergency (ER) | payer MEDICAID | END 2022-07-16 22:39 | disposition home or self-care (01) | LOC: MW.ED 21:52 | DX: S41.152A Open bite of left upper arm, initial encounter (principal); W54.0XXA Bitten by dog, initial encounter | CPT/HCPCS: 12002; 99283 ==

== ENCOUNTER 2022-10-12 11:19 | Emergency (ER) | payer BC | END 2022-10-12 13:20 | LOC: MW.ED 11:19 | DX: M79.632 Pain in left forearm (principal); Z65.3 Problems related to other legal circumstances; W17.89XA Other fall from one level to another, initial encounter | CPT/HCPCS: 99283 ==

== ENCOUNTER 2023-08-29 11:18 | Emergency (ER) | payer MEDICAID | END 2023-08-29 12:05 | disposition left against medical advice (07) | LOC: MW.ED 11:18 | DX: Z53.21 Procedure and treatment not carried out due to patient leaving prior to being seen by health care provider (principal) ==

== ENCOUNTER 2024-06-15 13:21 | Emergency (ER) | payer MEDICAID ==
[2024-06-15 13:38] LABS: BASOPHILS ABSOLUTE AUTO 0.11 K/uL (0.00-0.20); BASOPHILS PERCENT AUTO 1.5 % (0.0-1.0); EOSINOPHILS ABSOLUTE AUTO 0.16 K/uL (0.00-0.45); EOSINOPHILS PERCENT AUTO 2.2 % (0.0-6.0); HEMATOCRIT 46.7 % (42.0-52.0); HEMOGLOBIN 16.4 g/dL (14.0-18.0); IMMATURE GRAN ABSOLUTE AUTO 0.05 K/uL (0.00-0.05); IMMATURE GRAN PERCENT AUTO 0.7 % (0.0-0.4); LYMPHOCYTES PERCENT AUTO 32.3 % (24.0-44.0); MEAN CORPUSCULAR HEMOGLOBIN 28.7 pg (28.0-32.0); MEAN CORPUSCULAR HGB CONC 35.1 g/dL (32.0-36.0); MEAN CORPUSCULAR VOLUME 81.6 fL (83.0-99.0); MEAN PLATELET VOLUME 11.3 fL (9.4-12.4); MONOCYTES PERCENT AUTO 6.7 % (0.0-8.0); NEUTROPHILS PERCENT AUTO 56.6 % (41.0-71.0); PLATELET COUNT,PLT 251 K/uL (150-400); RED BLOOD CELL COUNT 5.72 M/uL (4.52-5.90); WHITE BLOOD CELL COUNT,WBC 7.42 K/uL (3.9-11.3)
[2024-06-15 14:06] LABS: A/G RATIO 1.1 (0.9-1.6); ALANINE AMINOTRANSFERASE,ALT 28 IU/L (14-63); ALBUMIN 4.3 g/dL (3.4-5.0); ALKALINE PHOSPHATASE 58 U/L (46-116); ASPARTATE AMNIOTRANSFERASE,AST 11 IU/L (15-37); BILIRUBIN TOTAL 0.4 mg/dL (0.2-1.0); BLOOD UREA NITROGEN,BUN 14 mg/dL (7.0-18.0); CALCIUM 9.9 mg/dL (8.5-10.1); CARBON DIOXIDE,CO2 30.7 mmol/L (21.0-32.0); CHLORIDE,CL 101 mmol/L (98-107); CREATININE 1.3 mg/dL (0.8-1.3); GLUCOSE RANDOM 104 mg/dL (74-106); LIPASE 35 U/L (16-77); MAGNESIUM 1.6 mg/dL (1.8-2.4); POTASSIUM,K 3.9 mmol/L (3.5-5.1); PROTEIN TOTAL,TP 8.1 g/dL (6.4-8.2); SODIUM,NA 141 mmol/L (136-148)
[2024-06-15 14:12] LABS: ESTIMATED GFR 73 mL/min (>60)
[2024-06-15] MEDS: Dicyclomine 10 MG Cap PO ONE (17:27)
== END 2024-06-15 19:44 | disposition home or self-care (01) ==
LOC: MW.ED 13:21
DX: K59.00 Constipation, unspecified (principal); J45.909 Unspecified asthma, uncomplicated; Z79.899 Other long term (current) drug therapy; Z75.8 Other problems related to medical facilities and other health care
CPT/HCPCS: 36415; 74018; 80053; 83690; 83735; 85025; 99283; A9270

== ENCOUNTER 2024-06-29 09:18 | Day surgery (SDC) | payer MEDICAID ==
[2024-06-29] MEDS: Lactated Ringers 1,000 ML IV SCH (10:05)
[2024-06-29] MEDS ORDERED: propofoL 50 ML ONE (10:43)
[2024-06-29] MEDS ORDERED: Lidocaine 2% 5 ML SDV ONE (10:43)
[2024-06-29] MEDS ORDERED: Midazolam 1 MG/ML 2 ML SDV ONE (11:06)
[2024-06-29] MEDS ORDERED: dexmedeTOMIDine HCl 200 MCG/2 ML SDV ONE (11:11)
[2024-06-29] MEDS ORDERED: Water For Injection, Sterile 20 ML ONE (11:11)
[2024-06-29] MEDS ORDERED: Lactated Ringers 1,000 ML IV SCH (11:45)
== END 2024-06-29 12:45 | disposition home or self-care (01) ==
LOC: MW.SDS 09:18
PROVIDERS: ATTEND Surgery
DX: K59.00 Constipation, unspecified (principal); R10.31 Right lower quadrant pain; R10.32 Left lower quadrant pain; F41.9 Anxiety disorder, unspecified; F15.90 Other stimulant use, unspecified, uncomplicated; F17.210 Nicotine dependence, cigarettes, uncomplicated
CPT/HCPCS: 45378; J2704; J7120; J3490

== ENCOUNTER 2024-11-18 17:41 | Emergency (ER) | payer MEDICAID ==
[2024-11-18 19:17] LABS: BASOPHILS ABSOLUTE AUTO 0.05 K/uL (0.00-0.20); BASOPHILS PERCENT AUTO 1.1 % (0.0-1.0); EOSINOPHILS ABSOLUTE AUTO 0.04 K/uL (0.00-0.45); EOSINOPHILS PERCENT AUTO 0.8 % (0.0-6.0); HEMATOCRIT 45.7 % (42.0-52.0); HEMOGLOBIN 16.5 g/dL (14.0-18.0); IMMATURE GRAN ABSOLUTE AUTO 0.03 K/uL (0.00-0.05); IMMATURE GRAN PERCENT AUTO 0.6 % (0.0-0.4); LYMPHOCYTES ABSOLUTE AUTO 1.01 K/uL (1.00-4.80); LYMPHOCYTES PERCENT AUTO 21.3 % (24.0-44.0); MEAN CORPUSCULAR HEMOGLOBIN 30.4 pg (28.0-32.0); MEAN CORPUSCULAR HGB CONC 36.1 g/dL (32.0-36.0); MEAN CORPUSCULAR VOLUME 84.2 fL (83.0-99.0); MEAN PLATELET VOLUME 9.2 fL (9.4-12.4); MONOCYTES ABSOLUTE AUTO 0.59 K/uL (0.00-0.80); MONOCYTES PERCENT AUTO 12.4 % (0.0-8.0); NEUTROPHILS ABSOLUTE AUTO 3.03 K/uL (1.80-7.70); NEUTROPHILS PERCENT AUTO 63.8 % (41.0-71.0); PLATELET COUNT,PLT 159 K/uL (150-400); RED BLOOD CELL COUNT 5.43 M/uL (4.52-5.90); WHITE BLOOD CELL COUNT,WBC 4.75 K/uL (3.9-11.3)
[2024-11-18] MEDS: Sodium Chloride 0.9% 1,000 ML IV ONE (19:17)
[2024-11-18] MEDS: LORazepam 2 MG/ML SDV IVPUSH ONE (19:18)
[2024-11-18] MEDS: Sodium Chloride 0.9% 10 ML Syringe FLUSH PRN (19:18)
[2024-11-18] MEDS: Sodium Chloride 0.9% 2.5 ML Syringe FLUSH PRN (19:18)
[2024-11-18 19:34] LABS: AMPHETAMINES SCREEN, URINE NEGATIVE (CUTOFF=500); BARBITURATE SCREEN,URINE NEGATIVE (CUTOFF=200); BENZODIAZEPINES SCREEN,URINE NEGATIVE (CUTOFF=150); BUPRENORPHINE SCREEN,URINE NEGATIVE (CUTOFF=10); METHADONE SCREEN, URINE NEGATIVE (CUTOFF=200); METHAMPHETAMINES SCREEN, URINE NEGATIVE (CUTOFF=500); OXYCODONE SCREEN,URINE NEGATIVE (CUT0FF=100); PCP SCREEN,URINE NEGATIVE (CUTOFF=25); THC SCREEN,URINE 20 NG/ML NEGATIVE (CUTOFF=50)
[2024-11-18 19:52] LABS: A/G RATIO 0.9 (0.9-1.6); ACETAMINOPHEN <2.0 ug/mL; ALANINE AMINOTRANSFERASE,ALT 216 IU/L (14-63); ALBUMIN 3.8 g/dL (3.4-5.0); ALKALINE PHOSPHATASE 73 U/L (46-116); ASPARTATE AMNIOTRANSFERASE,AST 234 IU/L (15-37); BILIRUBIN TOTAL 0.7 mg/dL (0.2-1.0); BLOOD UREA NITROGEN,BUN 7 mg/dL (7.0-18.0); CALCIUM 8.6 mg/dL (8.5-10.1); CARBON DIOXIDE,CO2 28.4 mmol/L (21.0-32.0); CHLORIDE,CL 96 mmol/L (98-107); CREATININE 0.9 mg/dL (0.8-1.3); EST CRCL DRUG DOSING (CG) 121.57 mL/min; ETHANOL BLOOD MEDICAL 180 mg/dL; GLUCOSE RANDOM 111 mg/dL (74-106); MAGNESIUM 1.5 mg/dL (1.8-2.4); POTASSIUM,K 3.1 mmol/L (3.5-5.1); PROTEIN TOTAL,TP 7.9 g/dL (6.4-8.2); SALICYLATE 3.8 mg/dL (0.0-20.0); SODIUM,NA 137 mmol/L (136-148); TSH ULTRASENSITIVE 0.66 uIU/mL (0.36-3.74)
[2024-11-18 19:54] LABS: ESTIMATED GFR 114 mL/min (>60)
[2024-11-18] MEDS: Magnesium Sulf/Wat 2 GM/50 mL 2 GM in Premix Bag 1 BAG IV ONE (20:45)
[2024-11-18] MEDS: Potassium Chloride 20 MEQ Tab.ER PO ONE (20:45)
[2024-11-18] MEDS: Gabapentin 300 MG Cap PO ONE (21:49)
[2024-11-18 23:05] LABS: APPEARANCE,URINE CLOUDY; BILIRUBIN,URINE NEGATIVE (NEGATIVE); COLOR,URINE YELLOW; GLUCOSE,URINE NEGATIVE (NEGATIVE); KETONES,URINE NEGATIVE (NEGATIVE); LEUKOCYTE ESTERASE,URINE NEGATIVE (NEGATIVE); NITRITE,URINE NEGATIVE (NEGATIVE); OCCULT BLOOD,URINE NEGATIVE (NEGATIVE); PROTEIN,URINE TRACE mg/dL (NEGATIVE); UROBILINOGEN,URINE 0.2 EU/dL (<2.0)
[2024-11-18 23:19] LABS: BACTERIA,URINE 3+ (NEGATIVE); EPITHELIAL CELLS,URINE RARE (NONE-FEW); MUCUS,URINE MODERATE (NONE-MOD); RBC,URINE 0-2 (0-2/HPF); WBC,URINE 0-1 (0-5/HPF)
[2024-11-19] MEDS: Melatonin 3 MG Tab PO STA (01:56)
[2024-11-19] MEDS: LORazepam 0.5 MG Tab PO STA (07:40)
== END 2024-11-19 09:51 ==
LOC: MW.ED 17:41
DX: F10.20 Alcohol dependence, uncomplicated (principal); R45.851 Suicidal ideations; E87.6 Hypokalemia; E83.42 Hypomagnesemia; R74.01 Elevation of levels of liver transaminase levels; J45.909 Unspecified asthma, uncomplicated; Z75.8 Other problems related to medical facilities and other health care
CPT/HCPCS: 36415; 80053; 80143; 80179; 80305; 80307; 81001; 83735; 84443; 85025; 87428; 96361; 96374; 96375; 99285; A9270; J2060; J3475; J7030; 99284